=== PATIENT | female | born 1975 | race Caucasian/White ===

== ENCOUNTER 2017-12-06 01:57 | Emergency (ER) | payer SELFPAY ==
[~2017-12-06] VITALS: Ht 162.6 cm; Wt 63.5 kg
[2017-12-06 02:03] VITALS: BP 137/74; PULSE 109; RESP 26; TEMP 98.9; O2SAT 100
[2017-12-06] MEDS ORDERED: SODIUM CHLORIDE 0.9% FLUSH 10 ML FLUSH IVF PRN (02:30)
[2017-12-06] MEDS ORDERED: LORazepam 2 MG/ML VIAL IV PUSH ONE (02:30)
--- NOTE | 2017-12-06 02:40 | PD ---
HPI Chief Complaint: Chest Pain Time Seen by Provider: 02:06 Travel History International Travel<30 days: No Contact w/Intl Traveler<30days: No Traveled to known affect area: No History of Present Illness HPI Is a 42-year-old woman who presents to the emergency department complaining of palpitations chest pain and trouble breathing. She reports that about 10 PM or so she started getting pounding in her chest with shortness of breath. Shortness of breath worsened. She began getting tingling in her hands and her feet. She denies having any history of previous similar problems, any respiratory difficulties, or any history of anxiety or panic attacks. She states she smoked marijuana this morning which is not common for her. She did have a couple drinks at lunch, and drank an energy drink around 4 this afternoon. No other alcohol or illicit drugs this evening. She otherwise had been feeling generally well and healthy. No recent illness or injury. She did recently drive down here, but a 15 hour car trip arriving yesterday. She does have some funny feeling in her calves and legs, but no distinct swelling. No history of DVT or PE. History Past Medical History Medical History: Denies Significant Hx Tetanus Vaccination: > 5 Years Influenza Vaccination: No LMP: 11/15/17 : 4 Para: 3 Social History Alcohol Use: Yes Tobacco Use: Yes Allergies-Medications (Allergen,Severity, Reaction): Coded Allergies: No Known Drug Allergies (Verified Allergy, Unknown, 12/06/17) Reported Meds & Prescriptions Reported Meds & Active Scripts Active No Active Prescriptions or Reported Medications Review of Systems Except as stated in HPI: all other systems reviewed are Neg Physical Exam Narrative GENERAL: Well-appearing 42-year-old woman, no acute distress. SKIN: Focused skin assessment warm/dry. HEAD: Atraumatic. Normocephalic. EYES: Pupils equal and round. No scleral icterus. No injection or drainage. ENT: No nasal bleeding or discharge. Mucous membranes pink and moist. NECK: Trachea midline. No JVD. CARDIOVASCULAR: Regular rate and rhythm. No murmur appreciated. RESPIRATORY: No accessory muscle use. Lungs are clear. A little bit tachypnea.. GASTROINTESTINAL: Abdomen soft, non-tender, nondistended. Hepatic and splenic margins not palpable. MUSCULOSKELETAL: No obvious deformities. No edema. NEUROLOGICAL: Awake and alert. No obvious cranial nerve deficits. Motor grossly within normal limits. Normal speech. PSYCHIATRIC: Anxious appearing. Data Data Last Documented VS Vital Signs Date Time Temp Pulse Resp B/P (MAP) Pulse Ox O2 Delivery O2 Flow Rate FiO2 12/06/17 03:02 22 100 Room Air 12/06/17 02:03 98.9 109 137/74 (95) Orders Orders Complete Blood Count With Diff (12/06/17 02:25) Comprehensive Metabolic Panel (12/06/17 02:25) D-Dimer (12/06/17 02:25) Troponin I (12/06/17 02:25) Iv Access Insert/Monitor (12/06/17 02:25) Electrocardiogram (12/06/17 02:25) Ecg Monitoring (12/06/17 02:25) Oximetry (12/06/17 02:25) Oxygen Administration (12/06/17 02:25) Chest, Pa & Lat (12/06/17 02:25) Sodium Chloride 0.9% Flush (Ns Flush) (12/06/17 02:30) Lorazepam Inj (Ativan Inj) (12/06/17 02:30) Labs Laboratory Tests Test 12/06/17 02:40 White Blood Count 9.1 TH/MM3 Red Blood Count 3.97 MIL/MM3 Hemoglobin 13.4 GM/DL Hematocrit 38.3 % Mean Corpuscular Volume 96.6 FL Mean Corpuscular Hemoglobin 33.8 PG Mean Corpuscular Hemoglobin Concent 35.0 % Red Cell Distribution Width 12.6 % Platelet Count 227 TH/MM3 Mean Platelet Volume 7.9 FL Neutrophils (%) (Auto) 45.0 % Lymphocytes (%) (Auto) 44.8 % Monocytes (%) (Auto) 8.0 % Eosinophils (%) (Auto) 1.3 % Basophils (%) (Auto) 0.9 % Neutrophils # (Auto) 4.1 TH/MM3 Lymphocytes # (Auto) 4.1 TH/MM3 Monocytes # (Auto) 0.7 TH/MM3 Eosinophils # (Auto) 0.1 TH/MM3 Basophils # (Auto) 0.1 TH/MM3 CBC Comment DIFF FINAL Differential Comment D-Dimer Quantitative (PE/DVT) 0.27 MG/L FEU Blood Urea Nitrogen 16 MG/DL Creatinine 0.82 MG/DL Random Glucose 127 MG/DL Total Protein 7.0 GM/DL Albumin 4.0 GM/DL Calcium Level 8.5 MG/DL Alkaline Phosphatase 60 U/L Aspartate Amino Transf (AST/SGOT) 30 U/L Alanine Aminotransferase (ALT/SGPT) 32 U/L Total Bilirubin 0.2 MG/DL Sodium Level 140 MEQ/L Potassium Level 3.4 MEQ/L Chloride Level 107 MEQ/L Carbon Dioxide Level 23.8 MEQ/L Anion Gap 9 MEQ/L Estimat Glomerular Filtration Rate 77 ML/MIN Troponin I LESS THAN 0.02 NG/ML [facility] Medical Decision Making Medical Screen Exam Complete: Yes Emergency Medical Condition: Yes Interpretation(s) My review of EKG: Normal sinus rhythm at a rate of 89, normal axis, normal intervals, no acute ischemia. Chest x-ray negative LABS: CBC is unremarkable CMP is unremarkable D-dimer negative Differential Diagnosis Anxiety attack, DVT or PE, arrhythmia, adverse effect of medications or illicit drugs, other Narrative Course Medical decision making INITIAL: 42-year-old woman presents to the emergency department complaining of heart pounding and shortness of breath. She appears anxious. She is having some some tingling that may be sequela of hyperventilation. Will check labs including d-dimer. Chest x-ray and EKG. I think this is likely more of a panic attack. Will reassess. Diagnosis Primary Impression: Shortness of breath Additional Impression: Anxiety Additional Instructions: Drink plenty of fluids and stay well-hydrated. Follow-up with your primary doctor and return home with remarkably well. Return to the emergency department for any new or worsening symptoms. Med/Other Pt SpecificInfo: No Change to Meds Scripts No Active Prescriptions or Reported Meds Disposition: 01 DISCHARGE HOME Condition: Stable Farhad Yousif MD Dec 06, 2017 02:40
[2017-12-06 02:59] LABS: AUTOMATED NEUTROPHIL # 4.1 TH/MM3 (1.8-7.7); BASOPHIL # 0.1 TH/MM3 (0-0.2); BASOPHIL % 0.9 % (0.0-2.0); EOSINOPHIL # 0.1 TH/MM3 (0-0.4); EOSINOPHIL % 1.3 % (0.0-4.0); HEMATOCRIT 38.3 % (35.0-46.0); HEMOGLOBIN 13.4 GM/DL (11.6-15.3); LYMPH % 44.8 % (9.0-44.0); LYMPHOCYTE # 4.1 TH/MM3 (1.0-4.8); MEAN CELL VOLUME 96.6 FL (80.0-100.0); MEAN CORPUSCULAR HEMOGLOBIN 33.8 PG (27.0-34.0); MEAN PLATELET VOLUME 7.9 FL (7.0-11.0); MONOCYTE # 0.7 TH/MM3 (0-0.9); PLATELET COUNT 227 TH/MM3 (150-450); RED BLOOD COUNT 3.97 MIL/MM3 (4.00-5.30); RED CELL DISTRIBUTION WIDTH 12.6 % (11.6-17.2); WHITE BLOOD COUNT 9.1 TH/MM3 (4.0-11.0)
[2017-12-06 03:02] VITALS: RESP 22; O2SAT 100
[2017-12-06 03:08] LABS: ALT (GPT) 32 U/L (10-53); AST (GOT) 30 U/L (15-37); BICARBONATE 23.8 MEQ/L (21.0-32.0); BLOOD UREA NITROGEN 16 MG/DL (7-18); CALCIUM 8.5 MG/DL (8.5-10.1); CHLORIDE 107 MEQ/L (98-107); CREATININE 0.82 MG/DL (0.50-1.00); GLOMERULAR FILTRATION RATE 77 ML/MIN (>89); GLUCOSE,RANDOM 127 MG/DL (74-106); SODIUM (NA) 140 MEQ/L (136-145)
--- NOTE | 2017-12-06 03:10 | RADRPT ---
EXAM DATE/TIME: 12/06/2017 02:47 [facility] COMPARISON: No previous studies available for comparison. INDICATIONS : Short of breath. MEDICAL HISTORY : None. SURGICAL HISTORY : None. ENCOUNTER: Initial ACUITY: 1 day PAIN SCORE: 5/10 LOCATION: Bilateral chest FINDINGS: PA and lateral views of the chest demonstrate the lungs to be symmetrically aerated without evidence of mass, infiltrate or effusion. The cardiomediastinal contours are unremarkable. Osseous structure s are intact. Apparent pectus excavatum. CONCLUSION: No evidence of acute cardiopulmonary disease. Gilbert Kennedy MD on December 06, 2017 at 3:07 Board Certified Radiologist. This report was verified electronically.
[2017-12-06 03:12] LABS: ALKALINE PHOSPHATASE 60 U/L (45-117); TOTAL BILIRUBIN ADULT 0.2 MG/DL (0.2-1.0); TROPONIN I LESS THAN 0.02 NG/ML (0.02-0.05)
--- NOTE | 2017-12-06 11:14 | EKG ---
Date Performed: 12/06/2017 Time Performed: 02:14:13 PTAGE: 42 years EKG: Sinus rhythm NORMAL ECG NO PREVIOUS TRACING DOCTOR: Reginald Gold Interpretating Date/Time 12/06/2017 11:12:01
== END 2017-12-06 04:15 | disposition home or self-care (01) ==
LOC: NEPE 01:57
DX: R06.02 Shortness of breath (principal); F41.9 Anxiety disorder, unspecified; F12.90 Cannabis use, unspecified, uncomplicated; Z72.0 Tobacco use
CPT/HCPCS: 71046; 80053; 84484; 85025; 85379; 93005; 96374; 99285; J2060